=== PATIENT | female | born 1960 | race Caucasian/White ===

== ENCOUNTER 2018-04-12 12:55 | Inpatient (IN) ==
[2018-04-12] MEDS ORDERED: Permethrin Cream Rinse 60 ML LIQUID TP ONE (15:08)
[2018-04-12] MEDS ORDERED: Acetaminophen 325 MG TABLET PO SCH (16:00)
[2018-04-13] MEDS: risperiDONE 0.25 MG TABLET PO SCH (08:24)
[2018-04-14] MEDS: risperiDONE 0.25 MG TABLET PO SCH (07:38)
[2018-04-15] MEDS: risperiDONE 0.25 MG TABLET PO SCH (09:39)
[2018-04-16] MEDS: risperiDONE 0.25 MG TABLET PO SCH (08:09)
[2018-04-16] MEDS: Acetaminophen 325 MG TABLET PO PRN (08:09)
[2018-04-16 19:35] VITALS: BP 108/70
[2018-04-17] MEDS: Acetaminophen 325 MG TABLET PO PRN (07:11)
[2018-04-17] MEDS: risperiDONE 0.25 MG TABLET PO SCH (07:11)
[2018-04-17] MEDS ORDERED: Acetaminophen 325 MG TABLET PO PRN (07:19)
== END 2018-04-17 13:27 | disposition hospice, home (50) | DRG 56 ==
LOC: INPPIK 14:58
PROVIDERS: ADMIT Internal Medicine; ATTEND Internal Medicine

== ENCOUNTER 2018-05-17 08:48 | Inpatient (IN) ==
[2018-05-17] MEDS ORDERED: Bisacodyl 10 MG RECTAL SUPPOSITORY RC PRN (10:58)
[2018-05-17] MEDS ORDERED: Acetaminophen 650 MG RECTAL SUPP RC PRN (10:58)
[2018-05-17] MEDS ORDERED: *HR* LORazepam 1 MG TABLET PO PRN (10:58)
[2018-05-17] MEDS: *HR* LORazepam 0.5 MG TABLET PO PRN (12:03)
[2018-05-17] MEDS: *HR* LORazepam 0.5 MG TABLET PO SCH (21:05)
[2018-05-18] MEDS: risperiDONE 0.25 MG TABLET PO SCH (08:54)
[2018-05-18] MEDS: *HR* LORazepam 0.5 MG TABLET PO SCH (21:04)
[2018-05-18] MEDS: MORPHINE SUL Oral CONC 10 MG/0.5 ML ORAL.SYG PO PRN (21:05)
[2018-05-19] MEDS: risperiDONE 0.25 MG TABLET PO SCH (08:11)
[2018-05-19] MEDS: *HR* LORazepam 0.5 MG TABLET PO PRN ×2 (10:14→17:44)
[2018-05-19] MEDS: MORPHINE SUL Oral CONC 10 MG/0.5 ML ORAL.SYG PO PRN (21:15)
[2018-05-19] MEDS: *HR* LORazepam 0.5 MG TABLET PO SCH (21:15)
[2018-05-20] MEDS: risperiDONE 0.25 MG TABLET PO SCH (08:46)
[2018-05-20] MEDS: *HR* LORazepam 0.5 MG TABLET PO SCH (21:13)
[2018-05-21] MEDS: *HR* LORazepam 0.5 MG TABLET PO PRN (12:24)
[2018-05-21] MEDS: risperiDONE 0.25 MG TABLET PO SCH (12:24)
[2018-05-21] MEDS: *HR* LORazepam 0.5 MG TABLET PO SCH (19:14)
[2018-05-22 11:33] VITALS: BP 123/60
[2018-05-22] MEDS: risperiDONE 0.25 MG TABLET PO SCH (11:34)
== END 2018-05-22 15:19 | disposition hospice, home (50) | DRG 57 ==
LOC: INPPIK 08:48
PROVIDERS: ADMIT Internal Medicine; ATTEND Internal Medicine

== ENCOUNTER 2018-06-16 16:12 | Inpatient (IN) ==
[2018-06-17] MEDS ORDERED: Acetaminophen 650 MG RECTAL SUPP RC PRN (11:13)
[2018-06-17] MEDS ORDERED: Bisacodyl 10 MG RECTAL SUPPOSITORY RC PRN (11:15)
[2018-06-17] MEDS: *HR* LORazepam 0.5 MG TABLET PO SCH ×3 (12:18→20:28)
[2018-06-17] MEDS: risperiDONE 0.25 MG TABLET PO SCH ×2 (12:18→20:28)
[2018-06-17] MEDS: Nitrofurantoin (BID) 100 MG CAPSULE PO SCH (16:07)
[2018-06-18] MEDS: Nitrofurantoin (BID) 100 MG CAPSULE PO SCH ×2 (08:53→17:16)
[2018-06-18] MEDS: *HR* LORazepam 0.5 MG TABLET PO SCH ×3 (08:53→20:19)
[2018-06-18] MEDS: risperiDONE 0.25 MG TABLET PO SCH ×2 (08:53→20:19)
[2018-06-18] MEDS: MORPHINE SUL Oral CONC 10 MG/0.5 ML ORAL.SYG SL PRN (20:19)
[2018-06-19] MEDS: Haloperidol Oral Conc 10 MG/5 ML UDC PO PRN ×2 (00:20→10:59)
[2018-06-19] MEDS: Hyoscyamine SL 0.125 MG TAB.SUBL SL PRN ×2 (03:13→17:49)
[2018-06-19] MEDS: MORPHINE SUL Oral CONC 10 MG/0.5 ML ORAL.SYG SL PRN ×3 (03:13→17:49)
[2018-06-19] MEDS: *HR* LORazepam 0.5 MG TABLET PO SCH ×3 (10:59→21:13)
[2018-06-19] MEDS: Nitrofurantoin (BID) 100 MG CAPSULE PO SCH ×2 (10:59→17:49)
[2018-06-19] MEDS: risperiDONE 0.25 MG TABLET PO SCH ×2 (10:59→21:13)
[2018-06-20] MEDS: MORPHINE SUL Oral CONC 10 MG/0.5 ML ORAL.SYG SL PRN (03:16)
[2018-06-20] MEDS: *HR* LORazepam 0.5 MG TABLET PO SCH ×2 (09:00→15:38)
[2018-06-20] MEDS: Nitrofurantoin (BID) 100 MG CAPSULE PO SCH ×2 (09:00→17:39)
[2018-06-20] MEDS: risperiDONE 0.25 MG TABLET PO SCH (09:00)
[2018-06-21] MEDS: MORPHINE SUL Oral CONC 10 MG/0.5 ML ORAL.SYG SL PRN ×2 (01:53→19:49)
[2018-06-21] MEDS: *HR* LORazepam 0.5 MG TABLET PO SCH ×4 (08:42→21:28)
[2018-06-21] MEDS: Nitrofurantoin (BID) 100 MG CAPSULE PO SCH ×2 (08:42→17:06)
[2018-06-21] MEDS: risperiDONE 0.25 MG TABLET PO SCH ×3 (08:43→21:28)
[2018-06-21 18:23] VITALS: BP 107/72
[2018-06-21] MEDS: Hyoscyamine SL 0.125 MG TAB.SUBL SL PRN (19:51)
[2018-06-21] MEDS: Haloperidol Oral Conc 10 MG/5 ML UDC PO PRN (19:51)
[2018-06-22] MEDS: MORPHINE SUL Oral CONC 10 MG/0.5 ML ORAL.SYG SL PRN ×2 (02:35→09:27)
[2018-06-22] MEDS: Hyoscyamine SL 0.125 MG TAB.SUBL SL PRN (02:36)
[2018-06-22] MEDS: Nitrofurantoin (BID) 100 MG CAPSULE PO SCH (09:27)
[2018-06-22] MEDS: risperiDONE 0.25 MG TABLET PO SCH (09:27)
[2018-06-22] MEDS: *HR* LORazepam 0.5 MG TABLET PO SCH ×2 (09:27→15:13)
== END 2018-06-22 17:00 | disposition hospice, inpatient (51) | DRG 951 ==
LOC: INPPIK 06-17 09:53
PROVIDERS: ADMIT Internal Medicine; ATTEND Internal Medicine